=== PATIENT | male | born 1995 ===

== ENCOUNTER 2016-10-21 17:56 | Emergency (ER) | payer OTHER ==
--- NOTE | 2016-10-21 18:19 | EDPHY ---
H & P Time Seen by Provider: 10/21/16 18:05 HPI/ROS: CHIEF COMPLAINT: Left index finger laceration HISTORY OF PRESENT ILLNESS: 21-year-old male presents to the emergency department by private vehicle with a laceration to his left index finger. Patient was working on a project for school and cut his left index finger with an [employer] knife. The incident happened just prior to arrival. He is right- hand dominant. He believes his tetanus shot is current. He describes the pain as mild. Denies any other trauma or injury. ROS: Denies numbness or tingling in his fingers, injury to the other fingers, retained foreign body. Past Medical/Surgical History: Negative Social History: [employer] student from [place] Smoking Status: Never smoked Physical Exam: On examination the patient has 2.5 cm flap laceration to the base of the palmar aspect of the left 2nd finger just distal to the MCP joint. No evidence of retained foreign body. No evidence of tendon injury. No palpable bony tenderness. He has full flexion and extension of his fingers. The other fingers do not appear injured. He has normal sensation to light touch with normal 2 point discrimination. Slow active bleeding from the wound. Constitutional: Initial Vital Signs Temperature (C) 36.7 C 10/21/16 18:03 Heart Rate 75 10/21/16 18:03 Respiratory Rate 16 10/21/16 18:03 Blood Pressure 128/67 H 10/21/16 18:03 O2 Sat (%) 97 10/21/16 18:03 O2 Delivery Mode Room Air Allergies/Adverse Reactions: No Known Allergies Allergy (Unverified 10/21/16 18:02) Home Medications: Medication Instructions Recorded NK [No Known Home Meds] 10/21/16 MDM/Departure - MDM Procedures: Laceration repair. Verbal consent was obtained from the patient. The 2.5 cm flap laceration on the palmar aspect left index finger was anesthetized using digital block using 1 % lidocaine without epinephrine and 0.5% bupivacaine without epinephrine. The wound was irrigated with saline, draped and explored to its base with a gloved finger. There were no deep structures involved. No tendon injury was identified. The wound was repaired with 4 0 Ethilon, 5 sutures. The wound repair was simple. The procedure was performed by myself. ED Course/Re-evaluation: 21-year-old male presents to the emergency department with a laceration to the left index finger. The wound was repaired, see procedure note. The patient was given wound care precautions. - Depart Disposition: Home, Routine, Self-Care Clinical Impression: Laceration of left index finger Condition: Good Instructions: Laceration (ED), Care For Your Stitches (ED), Acute Wounds (ED) Additional Instructions: Wound Care Follow-Up: Removal of sutures in 10 days. Suture removal is complimentary in uncomplicated cases. Infection or abnormal findings would require reevaluation by the MD. In that case, you may be billed. Keep wound dry, clean and protected. Ibuprofen 600 mg every 8 hours as needed for pain. Return if he notices any signs or symptoms of infection such as redness, swelling, increased pain, fever, purulent drainage.
[2016-10-21 19:06] VITALS: BP 139/77; PULSE 69; RESP 18; TEMP 98.4; O2SAT 99
== END 2016-10-31 12:37 | disposition home or self-care (01) ==
PROC: 0HQGXZZ Repair Left Hand Skin, External Approach (ICD-10-PCS; principal; 2016-10-21)
DX: S61.211A Laceration without foreign body of left index finger without damage to nail, initial encounter (principal); W26.0XXA Contact with knife, initial encounter; Y92.219 Unspecified school as the place of occurrence of the external cause